=== PATIENT | female | born 1985 | race Caucasian/White ===

== ENCOUNTER → 2022-04-14 | Outpatient (CLI) | payer OTHER ==
[2022-04-14 23:01] LABS: HGB 15.1 g/dL (12.0-15.0); MCHC 32.8 g/dL (32.0-37.0); MCV 91.5 fL (80.0-97.0); Mean Platelet Volume 11.4 fL (9.5-12.2); NRBC Per 100 WBC 0 /100 WBCS (0.0-0.0); Platelet Count 316 X 10*3/uL (140-440); RBC 5.03 X 10*6/uL (4.10-5.20); RDW 13.2 % (11.5-14.5)
[2022-04-14 23:12] LABS: Estradiol 35.9 pg/mL; Follicle Stimulating Hormone 3.7 mIU/mL
[2022-04-14 23:15] LABS: Progesterone 2.1 ng/mL
[2022-04-14 23:36] LABS: Luteinizing Hormone 3.3 mIU/mL; T4, Free (Free Thyroxine) 1.44 ng/dL (0.800-1.800)
== END | disposition home or self-care (01) ==
LOC: LABWHC1 16:41
PROVIDERS: ATTEND Obstetrics & Gynecology
DX: Z13.29 Encounter for screening for other suspected endocrine disorder (principal); R53.81 Other malaise
CPT/HCPCS: 36415; 82670; 83001; 83002; 84144; 84439; 84443; 84479; 85027